=== PATIENT | male | born 1990 | race Caucasian/White ===

== ENCOUNTER 2021-03-28 22:45 | Emergency (ER) | payer OTHER ==
[~2021-03-28 22:45] MED LIST: LIDOCAINE PATCH REMOVAL MC SCH
[2021-03-28 22:57] VITALS: BP 111/69; PULSE 94; TEMP 98.6; BMI 28.8
[2021-03-28] MEDS ORDERED: KETOROLAC TROMETHAMINE 30 MG/1 ML VIAL IM ONE (23:52)
[2021-03-28] MEDS ORDERED: LIDOCAINE 5% TOPICAL PATCH TP ONE (23:52)
[2021-03-29] MEDS ORDERED: KETOROLAC TROMETHAMINE 30 MG/1 ML VIAL ONE (00:27)
[2021-03-29] MEDS ORDERED: LIDOCAINE 5% TOPICAL PATCH ONE (00:27)
== END 2021-03-29 01:01 | disposition home or self-care (01) ==
LOC: JER 22:45 → JERFT 22:45
PROC: 3E023GC Introduction of Other Therapeutic Substance into Muscle, Percutaneous Approach (ICD-10-PCS; principal; 2021-03-28)
DX: M54.6 Pain in thoracic spine (principal)
CPT/HCPCS: 99284-25

== ENCOUNTER 2022-02-03 15:40 | Emergency (ER) | payer OTHER ==
[2022-02-03 15:54] VITALS: BP 106/63; RESP 18; TEMP 97.3; BMI 27.5
[2022-02-03] MEDS ORDERED: KETOROLAC TROMETHAMINE 30 MG/1 ML VIAL IVPUSH ONE (16:45)
[2022-02-03] MEDS ORDERED: SODIUM CHLORIDE 1,000 ML IV STA (16:45)
[2022-02-03] MEDS ORDERED: KETOROLAC TROMETHAMINE 30 MG/1 ML VIAL ONE (17:10)
[2022-02-03 18:15] VITALS: PULSE 65
== END 2022-02-03 18:55 | disposition home or self-care (01) ==
LOC: JERFT 15:40
PROC: 3E0333Z Introduction of Anti-inflammatory into Peripheral Vein, Percutaneous Approach (ICD-10-PCS; principal; 2022-02-03)
DX: M54.50 Low back pain, unspecified (principal); R53.83 Other fatigue
CPT/HCPCS: 99284-25

== ENCOUNTER 2022-09-09 16:55 | Emergency (ER) | payer OTHER ==
[2022-09-09 17:08] VITALS: BP 114/74; PULSE 82; RESP 18; TEMP 97.9; BMI 28.5
[2022-09-09] MEDS ORDERED: IBUPROFEN 600 MG TABLET (FP) PO ONE (17:45)
== END 2022-09-09 18:05 | disposition home or self-care (01) ==
LOC: JERFT 16:55
DX: M54.6 Pain in thoracic spine (principal); X50.0XXA Overexertion from strenuous movement or load, initial encounter; Y99.0 Civilian activity done for income or pay
CPT/HCPCS: 99282-25

== ENCOUNTER 2023-02-04 23:23 | Emergency (ER) | payer OTHER ==
[2023-02-04 23:31] VITALS: BP 128/88; PULSE 72; RESP 18; TEMP 97.6; BMI 28.3
[2023-02-05] MEDS ORDERED: IBUPROFEN 600 MG TABLET (FP) PO ONE ×2 (04:51→05:07)
== END 2023-02-05 05:43 | disposition home or self-care (01) ==
LOC: JER 23:23
DX: M25.562 Pain in left knee (principal)
CPT/HCPCS: 99283-25

== ENCOUNTER 2023-08-28 12:05 | Emergency (ER) | payer OTHER ==
[2023-08-28 12:13] VITALS: BP 127/75; PULSE 61; RESP 19; TEMP 98.6; BMI 29.4
[2023-08-28] MEDS ORDERED: IBUPROFEN 600 MG TABLET (FP) PO ONE (13:27)
[2023-08-28] MEDS: IBUPROFEN 600 MG TABLET (FP) PO ONE (13:55)
== END 2023-08-28 14:00 | disposition home or self-care (01) ==
LOC: JERFT 12:05
DX: M54.50 Low back pain, unspecified (principal)
CPT/HCPCS: 99283-25

== ENCOUNTER 2024-01-29 21:20 | Emergency (ER) | payer OTHER ==
[2024-01-29 21:26] VITALS: BP 125/77; PULSE 76; RESP 18; TEMP 97.9; BMI 28.7
[2024-01-29] MEDS ORDERED: IBUPROFEN 600 MG TABLET (FP) PO ONE (22:08)
[2024-01-29] MEDS: IBUPROFEN 600 MG TABLET (FP) PO ONE (22:09)
== END 2024-01-29 22:17 | disposition home or self-care (01) ==
LOC: JERFT 21:20
DX: S46.911A Strain of unspecified muscle, fascia and tendon at shoulder and upper arm level, right arm, initial encounter (principal); X50.1XXA Overexertion from prolonged static or awkward postures, initial encounter; Y99.0 Civilian activity done for income or pay
CPT/HCPCS: 73030-TC-RT-FY; 99283-25

== ENCOUNTER 2025-02-14 11:57 | Emergency (ER) | payer OTHER ==
[2025-02-14 12:09] VITALS: BP 113/82; PULSE 76; RESP 20; TEMP 98.2; BMI 28.8
[2025-02-14] MEDS ORDERED: IBUPROFEN 600 MG TABLET (FP) PO ONE (13:11)
[2025-02-14] MEDS ORDERED: METHOCARBAMOL 500 MG TABLET ONE (13:11)
[2025-02-14] MEDS: IBUPROFEN 600 MG TABLET (FP) PO ONE (13:16)
[2025-02-14] MEDS: METHOCARBAMOL 500 MG TABLET PO ONE (13:17)
== END 2025-02-14 13:33 | disposition home or self-care (01) ==
LOC: JERFT 11:57
DX: S29.012A Strain of muscle and tendon of back wall of thorax, initial encounter (principal); Y99.0 Civilian activity done for income or pay
CPT/HCPCS: 99283-25